=== PATIENT | male | born 1975 | race African-American/Black ===

== ENCOUNTER → 2023-06-30 12:07 | Outpatient (CLI) | payer OTHER, SELFPAY ==
--- NOTE | 2023-06-30 12:11 | DI.RAD.S_ITS ---
PROCEDURE: XR KNEE LT 3V INDICATIONS: Left knee pain TECHNIQUE: 3 views of the knee were acquired. COMPARISON: None. FINDINGS: Bones: No fractures or dislocations. No suspicious bony lesions. Soft tissues: Small joint effusion. No suspicious soft tissue calcifications. IMPRESSION: Small joint effusion. No fracture. Approved by: Vinicio Parker M.D. on 06/30/2023 at 19:01
== END ==
PROVIDERS: Referring Provider Physician Assistant Surgical; Visit Provider Physician Assistant Surgical
DX: M25.562 Pain in left knee (principal); M25.462 Effusion, left knee
CPT/HCPCS: 73562